=== PATIENT | male | born 1950 | race Caucasian/White ===

== ENCOUNTER 2022-03-23 07:30 | Inpatient (IN) ==
[2022-03-23 08:18] LABS: Basophils % 0.1 %; Eosinophils % 0.1 %; Hematocrit 27.5 % (37.5-50.1); Hemoglobin 8.9 g/dL (12.9-16.9); Immature Granulocytes % 0.5 % (0-4); Lymphocytes # 0.4 K/mcL (0.6-4.6); Lymphocytes % 4.4 %; Mean Corpuscular HGB Conc 32.4 g/dL (31.6-35.5); Mean Corpuscular Hemoglobin 28.2 pg (28.0-33.3); Mean Platelet Volume 11.8 fL (9.4-12.4); Monocytes # 0.4 K/mcL (0.0-1.3); Monocytes % 4.4 %; Neutrophils # 7.2 K/mcL (1.6-8.9); Platelet Count 100 K/mcL (140-400); Red Blood Count 3.16 M/mcL (4.19-5.50); Red Cell Distribution Width 17.2 % (11.5-14.5); Segmented Neutrophils % 90.5 %
[2022-03-23 08:28] LABS: INR 1.3; Prothrombin Time 14.7 Seconds (9.4-12.1)
[2022-03-23 08:40] LABS: Albumin 1.7 g/dL (3.5-5.7); Albumin/Globulin Ratio 0.6 (1.1-2.2); Bilirubin,Total 2.8 mg/dL (0.3-1.0); Globulin 2.8 g/dL (2.4-3.5); Magnesium 1.7 mg/dL (1.6-2.6); Phosphorous 2.6 mg/dL (2.7-4.5); Potassium 3.4 mEq/L (3.5-5.1); Total Protein 4.5 g/dL (6.4-8.9)
[2022-03-23 08:44] LABS: Troponin I 0.04 ng/mL (< 0.04)
[2022-03-23] MEDS ORDERED: Ondansetron 4 MG/2 ML VIAL IVP PRN (09:25)
[2022-03-23] MEDS ORDERED: Naloxone 0.4 MG/ML INJ IVP PRN (09:25)
[2022-03-23] MEDS ORDERED: *HR* Heparin 10,000 UNIT/10 ML VIAL IV PRN (10:30)
[2022-03-23] MEDS ORDERED: 0.9 % Sodium Chloride 2,000 ML PRIME SCH (10:30)
[2022-03-23] MEDS ORDERED: 0.9 % Sodium Chloride 250 ML IVC PRN (10:30)
[2022-03-23] MEDS ORDERED: *HR* LORazepam 1 MG TABLET PO PRN (10:57)
[2022-03-23 12:46] LABS: Ferritin 1419 ng/mL (20-250); Iron 40 mcg/dL (65-175); Transferrin < 75 mg/dL (203-362)
[2022-03-23 15:50] LABS: Thyroid Stimulating Hormone 2.097 mcIU/mL (0.340-5.600)
[2022-03-23 17:27] LABS: Bacteria,Urine Few per hpf (None-Few); Bilirubin,Urine Small (Negative); Blood,Urine Small (Negative); Clarity,Urine Clear (Clear); Color,Urine Yellow (Yellow); Glucose,Urine (UA) Normal (Normal); Ketones,Urine Negative (Negative); Leukocyte Esterase,Urine Negative (Negative); Mucus,Urine Few per lpf (None-Few); Nitrite,Urine Negative (Negative); PH,Urine 6.5 pH Units (5.0-8.0); Protein,Urine Trace mg/dL (Neg-Trace); RBC,Urine 15-30 per hpf (0-3); Specific Gravity,Urine 1.013 (1.010-1.025); Sperm,Urine Present per hpf (None Seen); Squamous Epithelial Cell,Urine Few per hpf (None-Few); Urobilinogen,Urine Normal (Normal)
[2022-03-23] MEDS: *HR* Heparin 5,000 UNIT/ML VIAL SQ SCH ×2 (17:48→23:13)
[2022-03-23] MEDS: Magnesium Oxide 400 MG TABLET PO SCH (20:28)
[2022-03-23] MEDS: *HR* OxyCODONE Immed Rel 15 MG TABLET PO SCH (20:28)
[2022-03-23] MEDS ORDERED: Mirtazapine 15 MG TABLET PO SCH (21:00)
[2022-03-23] MEDS: Nicotine 14 MG PATCH.TD24 TD SCH (23:13)
[2022-03-24 04:50] LABS: Calcium 6.6 mg/dL (8.6-10.3); Hematocrit 19.5 % (37.5-50.1); Magnesium 1.7 mg/dL (1.6-2.6); Mean Corpuscular Volume 85.5 fL (83.0-100.0); Potassium 2.9 mEq/L (3.5-5.1); Red Blood Count 2.28 M/mcL (4.19-5.50)
[2022-03-24 04:52] LABS: Hemoglobin 6.4 g/dL (12.9-16.9); Immature Platelets 13.3 % (1.1-6.1); Mean Corpuscular HGB Conc 32.8 g/dL (31.6-35.5); Mean Corpuscular Hemoglobin 28.1 pg (28.0-33.3); Mean Platelet Volume 12.5 fL (9.4-12.4); Red Cell Distribution Width 17.1 % (11.5-14.5); White Blood Count 5.2 K/mcL (4.3-11.1)
[2022-03-24 08:35] LABS: Hematocrit 24.1 % (37.5-50.1); Hemoglobin 7.8 g/dL (12.9-16.9)
[2022-03-24] MEDS: Magnesium Oxide 400 MG TABLET PO SCH ×2 (08:46→22:43)
[2022-03-24] MEDS: *HR* Heparin 5,000 UNIT/ML VIAL SQ SCH ×3 (08:46→23:45)
[2022-03-24] MEDS: *HR* OxyCODONE Immed Rel 15 MG TABLET PO SCH ×2 (08:47→22:45)
[2022-03-24] MEDS ORDERED: Patient Taking Own Medication 1 EACH PO SCH (09:00)
[2022-03-24] MEDS: Cholecalciferol (D-3) 1,000 UNIT (25MCG) TABLET PO SCH (10:25)
[2022-03-24] MEDS ORDERED: 0.9 % Sodium Chloride 250 ML IVC PRN ×2 (10:55→13:46)
[2022-03-24] MEDS ORDERED: *HR* Heparin 10,000 UNIT/10 ML VIAL IV PRN (10:55)
[2022-03-24] MEDS ORDERED: Albumin 25% 25gram/100mL 25 GM/100 ML IV.SOLN IVPB PRN (13:46)
[2022-03-24] MEDS ORDERED: 0.9 % Sodium Chloride 2,000 ML PRIME SCH (14:00)
[2022-03-24] MEDS: Nicotine 14 MG PATCH.TD24 TD SCH (22:44)
[2022-03-24] MEDS: Mirtazapine 15 MG TABLET PO SCH (22:45)
[2022-03-25 00:43] LABS: Adenovirus Not Detected (Not Detect); Bordetella Pertussis Not Detected (Not Detect); Chlamydophila pneumoniae Not Detected (Not Detect); Coronavirus 229E Not Detected (Not Detect); Coronavirus HKU1 Not Detected (Not Detect); Coronavirus NL63 Not Detected (Not Detect); Coronavirus OC43 Not Detected (Not Detect); Human Metapneumovirus Not Detected (Not Detect); Human Rhinovirus/Enterovirus Not Detected (Not Detect); Influenza A Subtype 2009 H1 Not Detected (Not Detect); Influenza B Not Detected (Not Detect); Mycoplasma pneumoniae Not Detected (Not Detect); Parainfluenza Virus 1 Not Detected (Not Detect); Parainfluenza Virus 2 Not Detected (Not Detect); Parainfluenza Virus 3 Not Detected (Not Detect); Parainfluenza Virus 4 Not Detected (Not Detect); Respiratory Syncytial Virus Not Detected (Not Detect); SARS-CoV-2 Not Detected (Not Detect)
[2022-03-25 02:12] LABS: Hepatitis B Surface Antibody < 3.10 mIU/mL
[2022-03-25 02:21] LABS: Hepatitis B Surface Antigen Nonreactive (Nonreactive)
[2022-03-25 05:53] LABS: Basophils % 0.2 %; Hematocrit 19.6 % (37.5-50.1); Hemoglobin 6.3 g/dL (12.9-16.9); Mean Corpuscular HGB Conc 32.1 g/dL (31.6-35.5)
[2022-03-25 05:54] LABS: Eosinophils # 0.1 K/mcL (0.0-0.6); Eosinophils % 1.2 %; Immature Granulocytes % 0.3 % (0-4); Immature Platelets 11.7 % (1.1-6.1); Lymphocytes # 2.3 K/mcL (0.6-4.6); Lymphocytes % 37.2 %; Mean Corpuscular Hemoglobin 27.5 pg (28.0-33.3); Mean Corpuscular Volume 85.6 fL (83.0-100.0); Mean Platelet Volume 12.2 fL (9.4-12.4); Monocytes # 0.5 K/mcL (0.0-1.3); Monocytes % 8.6 %; Neutrophils # 3.2 K/mcL (1.6-8.9); Red Blood Count 2.29 M/mcL (4.19-5.50); Red Cell Distribution Width 17.4 % (11.5-14.5); Segmented Neutrophils % 52.5 %; White Blood Count 6.1 K/mcL (4.3-11.1)
[2022-03-25 05:55] LABS: Platelet Count 78 K/mcL (140-400)
[2022-03-25 06:15] LABS: Magnesium 1.9 mg/dL (1.6-2.6); Phosphorous 1.3 mg/dL (2.7-4.5)
[2022-03-25 08:29] LABS: Hematocrit 21.3 % (37.5-50.1); Hemoglobin 6.8 g/dL (12.9-16.9)
[2022-03-25] MEDS: Cholecalciferol (D-3) 1,000 UNIT (25MCG) TABLET PO SCH (08:36)
[2022-03-25] MEDS: *HR* OxyCODONE Immed Rel 15 MG TABLET PO SCH (08:37)
[2022-03-25] MEDS: Magnesium Oxide 400 MG TABLET PO SCH ×2 (08:38→20:31)
[2022-03-25] MEDS: *HR* Heparin 5,000 UNIT/ML VIAL SQ SCH (08:39)
[2022-03-25] MEDS ORDERED: calcitrioL 0.25 MCG CAPSULE PO SCH (09:00)
[2022-03-25] MEDS ORDERED: *HR* OxyCODONE Immed Rel 15 MG TABLET PO PRN (09:13)
[2022-03-25] MEDS: cefTRIAXone 1,000 MG in 0.9 % Sodium Chloride 10 ML IVP SCH (10:17)
[2022-03-25] MEDS: Furosemide 40 MG TABLET PO SCH (12:19)
[2022-03-25] MEDS ORDERED: Iron Sucrose Complex 400 MG in 0.9 % Sodium Chloride 250 ML IVPB ONE (14:30)
[2022-03-25 19:39] LABS: Hemoglobin 7.9 g/dL (12.9-16.9); Red Cell Distribution Width 16.2 % (11.5-14.5)
[2022-03-25 19:40] LABS: Hematocrit 24.1 % (37.5-50.1); Immature Platelets 12.1 % (1.1-6.1); Mean Corpuscular HGB Conc 32.8 g/dL (31.6-35.5); Mean Corpuscular Hemoglobin 28.7 pg (28.0-33.3); Mean Corpuscular Volume 87.6 fL (83.0-100.0); Mean Platelet Volume 12.9 fL (9.4-12.4); Red Blood Count 2.75 M/mcL (4.19-5.50)
[2022-03-25 19:42] LABS: Platelet Count 76 K/mcL (140-400)
[2022-03-25 20:29] LABS: Eosinophils # 0.2 K/mcL (0.0-0.6); Lymphocytes # 1.4 K/mcL (0.6-4.6); Monocytes # 0.5 K/mcL (0.0-1.3); Neutrophils # 3.8 K/mcL (1.6-8.9)
[2022-03-25 20:30] LABS: Hypochromasia Present (Not Present); Target Cells 1+ (Not Present)
[2022-03-25] MEDS: Nicotine 14 MG PATCH.TD24 TD SCH (20:30)
[2022-03-25 20:31] LABS: Large Platelets Present (Not Present); Platelet Estimate Decreased (Normal)
[2022-03-25] MEDS: Mirtazapine 15 MG TABLET PO SCH (20:31)
[2022-03-26 04:44] LABS: Mean Corpuscular HGB Conc 32.5 g/dL (31.6-35.5)
[2022-03-26 04:46] LABS: Basophils % 0.3 %; Eosinophils # 0.1 K/mcL (0.0-0.6); Eosinophils % 0.9 %; Hematocrit 25.5 % (37.5-50.1); Hemoglobin 8.3 g/dL (12.9-16.9); Immature Granulocytes % 0.9 % (0-4); Immature Platelets 11.2 % (1.1-6.1); Lymphocytes # 1.7 K/mcL (0.6-4.6); Lymphocytes % 25.5 %; Mean Corpuscular Hemoglobin 28.3 pg (28.0-33.3); Mean Platelet Volume 12.9 fL (9.4-12.4); Monocytes # 0.6 K/mcL (0.0-1.3); Monocytes % 8.4 %; Neutrophils # 4.3 K/mcL (1.6-8.9); Red Blood Count 2.93 M/mcL (4.19-5.50); Red Cell Distribution Width 16.3 % (11.5-14.5); White Blood Count 6.7 K/mcL (4.3-11.1)
[2022-03-26 04:56] LABS: Albumin 1.7 g/dL (3.5-5.7); Albumin/Globulin Ratio 0.7 (1.1-2.2); Bilirubin,Direct 0.6 mg/dL (0.0-0.2); Bilirubin,Indirect 0.8 mg/dL (0.0-1.0); Bilirubin,Total 1.4 mg/dL (0.3-1.0); Calcium 6.7 mg/dL (8.6-10.3); Globulin 2.3 g/dL (2.4-3.5); Immature Reticulocyte % 12.2 % (11.0-38.0); Potassium 4.2 mEq/L (3.5-5.1); Retculocyte # 0.02 M/mcL (0.05-0.10); Reticulocyte % 0.6 % (1.6-2.8)
[2022-03-26 05:00] LABS: Platelet Count 90 K/mcL (140-400)
[2022-03-26] MEDS: Cholecalciferol (D-3) 1,000 UNIT (25MCG) TABLET PO SCH (08:27)
[2022-03-26] MEDS: Furosemide 40 MG TABLET PO SCH (08:28)
[2022-03-26] MEDS: cefTRIAXone 1,000 MG in 0.9 % Sodium Chloride 10 ML IVP SCH (08:28)
[2022-03-26] MEDS: Magnesium Oxide 400 MG TABLET PO SCH ×2 (08:28→22:52)
[2022-03-26] MEDS: Nicotine 14 MG PATCH.TD24 TD SCH (22:52)
[2022-03-26] MEDS: Mirtazapine 15 MG TABLET PO SCH (22:53)
[2022-03-27 07:23] VITALS: PULSE 71
[2022-03-27] MEDS ORDERED: *HR* Heparin 10,000 UNIT/10 ML VIAL IV PRN (08:36)
[2022-03-27] MEDS ORDERED: 0.9 % Sodium Chloride 250 ML IVC PRN (08:36)
[2022-03-27 13:27] VITALS: O2SAT 98
[2022-03-27 15:54] VITALS: BP 134/74; TEMP 97.3
== END 2022-03-27 14:04 | disposition home or self-care (01) | DRG 640 ==
LOC: 2ANU 07:30 → EMEROOARM 07:30 → 2ANU 10:06
PROVIDERS: ADMIT Internal Medicine; ATTEND Internal Medicine